=== PATIENT | female | born 1975 | race Caucasian/White ===

== ENCOUNTER 2022-01-25 15:15 | Emergency (ER) | payer OTHER ==
[~2022-01-25] VITALS: Ht 165.1 cm; Wt 85.0 kg
[2022-01-25 15:17] VITALS: BP 123/83
[2022-01-25] MEDS ORDERED: IBUP-2028 MT (21:37)
[2022-01-25] MEDS ORDERED: ACET-2708 MT (21:37)
[2022-01-25] MEDS ORDERED: HYDROCODONE/ACETAMINOPHEN 5/325MG TABLET PO ONE (21:45)
== END 2022-01-25 18:42 | disposition home or self-care (01) ==
LOC: ER 15:15
DX: S82.492A Other fracture of shaft of left fibula, initial encounter for closed fracture (principal); W18.39XA Other fall on same level, initial encounter; Y93.89 Activity, other specified; Y92.89 Other specified places as the place of occurrence of the external cause; Y99.8 Other external cause status
CPT/HCPCS: 29515; 73590; 73610; 99284